=== PATIENT | female | born 1970 | race Caucasian/White ===

== ENCOUNTER 2017-06-13 07:04 | Emergency (ER) | payer OTHER ==
[2017-06-13 07:19] VITALS: BP 145/71
--- NOTE | 2017-06-13 07:40 | UC ---
Throat Pain/Nasal Adan HPI - HPI Summary HPI Summary: sore throat x 1 day + headaches, lightheaded , no fever, + chills, no cough or chest congestion - History of Current Complaint Chief Complaint: UCHeadatino Stated Complaint: HEADACHE,SORE THROAT Time Seen by Provider: 06/13/17 07:14 Hx Obtained From: Patient Hx Last Menstrual Period: n/a Onset/Duration: Gradual Onset, Lasting Days - 1, Still Present Severity: Moderate Pain Intensity: 9 Cough: Nonproductive Associated Signs & Symptoms: Negative: Dysphagia, FB Sensation, Drooling, Wheezing, Hoarseness, Sinus Discomfort, Nasal Discharge, Fever, Rash - Allergies/Home Medications Allergies/Adverse Reactions: Allergies Allergy/AdvReac Type Severity Reaction Status Date / Time CI Pigment Blue 63 Allergy mouth Verified 06/13/17 07:13 [From Cymbalta] blisters Duloxetine [From Cymbalta] Allergy mouth Verified 06/13/17 07:13 blisters Pregabalin [From Lyrica] Allergy mouth Verified 06/13/17 07:13 blisters Home Medications: Home Medications Ciprofloxacin HCl [Ciprofloxacin 100 MG TAB] 0 mg PO BID 06/13/17 [History Confirmed 06/13/17] Ibuprofen TAB* [Motrin TAB* 800 MG] 800 mg PO Q6H PRN 06/13/17 [History Confirmed 06/13/17] Levothyroxine TAB* [Synthroid TAB*] 150 mcg PO DAILY 06/13/17 [History Confirmed 06/13/17] PMH/Surg Hx/FS Hx/Imm Hx Endocrine History: Diabetes - Surgical History Surgical History: Yes Surgery Procedure, Year, and Place: 3 c/sections. HYSTERECTOMY 2014. LEFT BREAST BIOPSY - Family History Known Family History: Positive: Diabetes Family History: no known cardio vascular issues in family lineage - Social History Alcohol Use: Occasionally Substance Use Type: None Smoking Status (MU): Heavy Every Day Tobacco Smoker Amount Used/How Often: 5 cigs per day Length of Time of Smoking/Using Tobacco: started age 13 Have You Smoked in the Last Year: Yes Review of Systems Constitutional: Chills, Fatigue Skin: Negative Eyes: Negative ENT: Sore Throat Respiratory: Negative Neurological: Headache Is Patient Immunocompromised?: No All Other Systems Reviewed And Are Negative: Yes Physical Exam Triage Information Reviewed: Yes Appearance: Well-Nourished, Pain Distress Vital Signs: Initial Vital Signs Temp 98.4 F 06/13/17 07:13 Pulse 90 06/13/17 07:13 Resp 18 06/13/17 07:13 BP 145/71 06/13/17 07:13 Pulse Ox 98 06/13/17 07:13 Vital Signs Reviewed: Yes Eyes: Positive: Conjunctiva Clear ENT: Positive: Normal ENT inspection, Hearing grossly normal, Pharyngeal erythema Neck: Positive: Supple, Nontender, No Lymphadenopathy Respiratory: Positive: Chest non-tender, Lungs clear, Normal breath sounds Cardiovascular: Positive: RRR, No Murmur, Pulses Normal Musculoskeletal Exam: Normal Skin Exam: Normal Throat Pain/Nasal Course/Dx - Differential Dx/Diagnosis Provider Diagnoses: pharyngitis. oral thrush. headache Discharge - Discharge Plan Condition: Stable Disposition: HOME Prescriptions: Nystatin SUSPENSION* 500,000 units PO QID #200 ml traMADol TAB* [Ultram*] 50 mg PO Q6HR PRN #15 tab MDD 4 PRN Reason: Headache Patient Education Materials: Oral Candidiasis (ED), Acute Headache (ED) Referrals: Chaparrita Minor MD [Primary Care Provider] - 5 Days
== END 2017-06-13 08:06 | disposition home or self-care (01) ==
LOC: UCCORT 07:04
DX: J02.9 Acute pharyngitis, unspecified (principal); B37.0 Candidal stomatitis; R51 Headache; R53.83 Other fatigue; E11.9 Type 2 diabetes mellitus without complications; Z90.710 Acquired absence of both cervix and uterus; Z88.8 Allergy status to other drugs, medicaments and biological substances; F17.210 Nicotine dependence, cigarettes, uncomplicated
CPT/HCPCS: 87651; 99212; G0463